=== PATIENT | male | born 1975 | race Caucasian/White ===

== ENCOUNTER 2022-04-20 20:44 | Emergency (ER) | payer BC ==
--- OUTSIDE RECORDS SUMMARY | 2022-04-20 20:49 | XMS REPORT | Continuity of Care Document ---
:1975 Author Organization [facility] t Address [address] [place] [address] Care Team Providers Name Role Phone PCP, PATIENT DOES NOT HAVE A Primary Care Physician UnavailCRISS Starr Attending Clinician Unavailable CAROLINA LOMBARDI Attending Clinician Unavailable CAROLINA LOMBARDI Attending Clinician Unavailable DENAE Mendez Eloise Attending Clinician VERA PEREZ Attending Clinician Unavailable Doctor Unassigned, [place] Attending Clinician Unavailable Criss Murillo MD Attending Clinician MING KEY Attending Clinician Unavailable Ming Key DO Attending Clinician Jairo Garcia MD Attending Clinician JAIRO GARCIA Attending Clinician Unavailable Coreen Canela DO Attending Clinician COREEN CANELA Attending Clinician Unavailable Torsten Franco MD Attending Clinician NUVIA VELASCO Attending Clinician Unavailable Nuvia Velasco MD Attending Clinician JOANN FARFAN Attending Clinician Unavailable Joann Farfan DO Attending Clinician CRISS MURILLO Admitting Clinician Unavailable CAROLINA LOMBARDI Admitting Clinician Unavailable Criss Murillo MD Admitting Clinician MING KEY Admitting Clinician Unavailable VERA PEREZ Admitting Clinician Unavailable COREEN CANELA Admitting Clinician Unavailable Coreen Canela DO Admitting Clinician NUVIA VELASCO Admitting Clinician Unavailable Payers Payer Name Policy Type Policy Number Effective Date Expiration Date S joselin [facility] [id number] 2021 00:00:00 Problems Condition Condition Condition Status Onset Resolution Last Treating Co mments Source Name Details Category Date Date Treatment Clinician Date Gastroesop Gastroesop Disease Active Overview : Univers hageal hageal 3-24 Formattin ity of reflux reflux 00:00: g of this [place] disease disease 00 note Medical with with might be Branch esophagiti esophagiti different s without s without from the hemorrhage hemorrhage original. Added automatic ally from request for surgery [id number] Obesity Obesity Disease Active Univers (BMI (BMI 3-21 ity of 30-39.9) 30-39.9) 00:00: [place] 00 Medical Branch Esophageal Esophageal Disease Active U nivers hiatal hiatal 3-21 ity of hernia hernia 00:00: [place] 00 Medical Branch Paraesopha Paraesopha Disease Active U nivers geal geal 3-21 ity of hernia hernia 00:00: 00 Medical Branch Abdominal Abdominal Disease Active Overview: Univers pain, pain, 3-16 Formattin ity of epigastric epigastric 00:00: g of this [place] 00 note Medical might be Branch different from the original. Added automatic ally from request for surgery [id number] Allergies, Adverse Reactions, Alerts Allergy Allergy Status Severity Reaction(s) Onset Inactive Treating Comm ents Source Name Type Date Date Clinician Morphine Propensi Active Itching Unive rs ty to 3-07 ity of adverse 00:00: [place] reaction 00 Medical s Branch MORPHINE DRUG Active Med ITCHING Univers INGREDI 3-07 ity of 00:00: [place] 00 Medical Branch Social History Social Habit Start Date Stop Date Quantity Comments Source Exposure to 2021-12-27 2022-01-06 Not sure [facility] SARS-CoV-2 00:00:00 09:25:00 [place] Medical (event) Branch Tobacco use and 2021-08-25 2021-08-25 Smokeless tobacco Un iversity of exposure 00:00:00 00:00:00 non-user [facility] [place] [facility] Sex Assigned At [birth year] Universit y of 00:00:00 00:00:00 [facility] [place] [facility] Smoking Status Start Date Stop Date Source Never smoked tobacco [facility] Medications Ordered Filled Start Stop Current Ordering Indication Dosage Frequency Signature Comments Components Source Medication Medication Date Date Medication? Clinician (SIG) Name Name hyoscyamine 2021-06 Yes [id number] .125mg Take 1 Univers 0.125 mg 0-26 tablet by ity of tablet 00:00: mouth [place] 00 every 6 Medical (six) Branch hours as needed for Other (esophagea l spasms). hyoscyamine 2021-06 Yes [id number] .125mg Take 1 Univers 0.125 mg 0-26 tablet by ity of tablet 00:00: mouth [place] 00 every 6 Medical (six) Branch hours as needed for Other (esophagea l spasms). ondansetron Yes [id number] 4mg Take 1 Univers 4 mg 4-22 tablet by ity of disintegrat 00:00: mouth [place] ing tablet 00 every 8 Medica l (eight) Branch hours as needed for Nausea and Vomiting (N/V). ondansetron 2021- No [id number] 4mg Take 1 Univers 4 mg 4-22 10-26 tablet by ity of disintegrat 00:00: 00:00 [place] tablet 00 :00 every 8 Medica l (eight) Branch hours as needed for Nausea and Vomiting (N/V). HYDROcodone Yes [id number] 1{tbl} Take 1 Un jeanne -acetaminop 4-19 tablet by ity of hen (NORCO) 00:00: mouth [place] 5-325 mg 00 every 6 Medical tablet (six) Branch hours as needed for Pain (scale 7-10) for up to 15 doses. Indication s: acute pain HYDROcodone 2021- No [id number] 1{tbl} Take 1 U nivers -acetaminop 4-19 10-26 tablet by it y of hen (NORCO) 00:00: 00:[place] 5-325 mg 00 :00 every 6 Medical tablet (six) Branch hours as needed for Pain (scale 7-10) for up to 15 doses. Indication s: acute pain hyoscyamine 2022-[id number] 1 Univers sulfate 4-02 tablet ity of (LEVSIN/SL) 00:00: [place] 0.125 mg 00 tongue Medical sublingual before Branch tablet meals. hyoscyamine 2-[id number] 1 Univers sulfate 4-02 tablet ity of (LEVSIN/SL) 00:00: [place] 0.125 mg 00 tongue Medical sublingual before Branch tablet meals. hyoscyamine 2-[id number] 1 Univers sulfate 4-02 tablet ity of (LEVSIN/SL) 00:00: [place] 0.125 mg 00 tongue Medical sublingual before Branch tablet meals. dicyclomine 2021-0 Yes [id number] 20mg Take 1 Univers 20 mg 3-19 tablet by ity of tablet 00:00: mouth 4 [place] 00 (four) Medical times Branch daily. proMETHazin 2021-0 Yes [id number] 25mg Take 1 Univers e 25 mg 3-19 tablet by ity of tablet 00:00: mouth [place] 00 every 6 Medical (six) Branch hours as needed for Nausea and Vomiting (N/V). dicyclomine 2021-0 2021- No [id number] 20mg Take 1 Univers 20 mg 3-19 10-26 tablet by ity of tablet 00:00: 00:00 mouth 4 [place] 00 :00 (four) Medical times Branch daily. proMETHazin 2021-0 2021- No [id number] 25mg Take 1 Univers e 25 mg 3-19 10-26 tablet by ity of tablet 00:00: 00:00 mouth [place] 00 :00 every 6 Medical (six) Branch hours as needed for Nausea and Vomiting (N/V). atorvastati 2020-0 Yes 40mg Take 40 mg Univers n 40 mg 4-12 by mouth. ity of tablet 00:00: [place] 00 Medical Branch atorvastati 2020-0 Yes 40mg Take 40 mg Univers n 40 mg 4-12 by mouth. ity of tablet 00:00: [place] 00 Medical Branch atorvastati 2020-0 Yes 40mg Take 40 mg Univers n 40 mg 4-12 by mouth. ity of tablet 00:00: [place] 00 [facility] anastrozole Yes 1mg Take 1 mg U nivers 1 mg tablet 3-23 by mouth ity of 00:00: [place] [facility] anastrozole 2020-2021- No 1mg Take 1 mg Univers 1 mg tablet 3-23 - by mouth ity of 00:00: 00:00 [place] 00 :00 [facility] Immunizations Ordered Filled Immunization Date Status Comments [facility] e Immunization Name Name SARS-COV-2 COVID-19 2021-07-04 Completed Unive rsity of PFIZER VACCINE 00:00:00 [facility] [place] SARS-COV-2 COVID-19 2021-07-04 Completed Unive rsity of PFIZER VACCINE 00:00:00 [facility] [place] SARS-COV-2 COVID-19 2021-07-04 Completed Unive rsity of PFIZER VACCINE 00:00:00 [facility] [place] SARS-COV-2 COVID-19 2020-10-02 Completed Unive rsity of PFIZER VACCINE 00:00:00 [facility] [place] SARS-COV-2 COVID-19 2020-10-02 Completed Unive rsity of PFIZER VACCINE 00:00:00 [facility] [place] SARS-COV-2 COVID-19 2020-10-02 Completed Unive rsity of PFIZER VACCINE 00:00:00 [facility] [place] SARS-COV-2 COVID-19 2020-09-11 Completed Unive rsity of PFIZER VACCINE 00:00:00 [facility] [place] SARS-COV-2 COVID-19 2020-09-11 Completed Unive rsity of PFIZER VACCINE 00:00:00 [facility] [place] SARS-COV-2 COVID-19 2020-09-11 Completed Unive rsity of PFIZER VACCINE 00:00:00 [facility] [place] Vital Signs Vital Name Observation Time Observation Value Comments Source Systolic blood 2022-01-06 14:31:00 142 mm[Hg] Univer sity of pressure [facility] [place] [facility] Diastolic blood 2022-01-06 14:31:00 92 mm[Hg] Unive rsity of pressure [facility] [place] [facility] Heart rate 2022-01-06 14:29:00 62 /min [facility] Body temperature 2022-01-06 14:29:00 36.67 [facility] Body height 2022-01-06 14:29:00 180.3 cm [facility] Body weight 2022-01-06 14:29:00 106.595 kg [facility] BMI 2022-01-06 14:29:00 32.78 kg/m2 [facility] Oxygen saturation in 2022-01-06 14:29:00 98 /min [facility] blood by [facility] Pulse oximetry [place] Procedures Procedure Date / Time Performed Performing Clinician [facility] e PATIENT QUESTIONNAIRE 2022-04-07 05:01:00 Doctor Unassigned, No University [facility] Name [facility] Encounters Start End Encounter Admission Attending Care Care Encounter Source Date/Time Date/Time Type Type Clinicians Facility Department ID 2021-09-16 Outpatient R CRISS MURILLO [facility] [id number] Univers 16:46:43 ity [facility] 2021-09-08 Outpatient R JENNIFER LOMBARDIRIEL [facility] LEYDI [id number] Univers 13:21:29 CAROLINA LOMBARDI i ty [facility] 2021-09-03 [facility] [id number] Univers 13:56:16 CAROLINA LOMBARDI i ty [facility] 2022-04-07 2022-04-07 Telemedici ROSIBEL Perez 1.2.840.114 [id number] Univers 11:45:00 12:00:00 ne Visit [facility] 350.1.13.10 ity of [facility] 4.2.7.2.[place] [id number] [facility] 185 Branch 2022-04-07 2022-04-07 Outpatient R CHRIS [facility] [id number] Univers 11:45:00 11:45:00 VERA ity [facility] 2022-04-07 2022-04-07 Orders Doctor PHILLIPS 1.2.840.114 [id number] Univers 00:00:00 00:00:00 Only Unassigned, FREDY 350.1.13.10 ity of [place] [facility] 4.2.7.2.686 [place] as [id number] [facility] 009 Branch 2022-01-06 2022-01-06 Office Catshilpa, [facility] 1.2.840.114 [id number] Univers 09:15:00 17:27:32 Visit Vera Y HEALTH 350.1.13.10 i ty [place] [id number] [address] 2022-01-06 2022-01-06 [facility] [id number] Univers 09:15:00 17:27:32 VERA ity [facility] 2022-01-06 2022-01-06 Outpatient R [facility] [id number] Univers 09:15:00 09:15:00 VERA ity [facility] 2022-01-06 2022-01-06 Orders Doctor JACQUELINE 1.2.840.114 [id number] Univers 00:00:00 00:00:00 Only Unassigned, FREDY 350.1.13.10 ity of [place] [facility] 4.2.7.2.686 [place] as [id number] [address] 2021-10-15 2021-10-15 Outpatient R CRISS MURILLO [facility] [id number] Univers 15:00:00 15:52:50 ity of [facility] [place] [facility] 2021-10-15 2021-10-15 Office Criss Murillo [facility] 1.2.840.114 [id number] Univers 15:00:00 15:52:50 Visit Y HEALTH 350.1.13.10 i ty [place] [id number] [address] 2021-10-15 2021-10-15 Telephone Criss Murillo [facility] 1.2.840.114 [id number] Univers 00:00:00 00:00:00 Y HEALTH 350.1.13.10 i ty [place] [id number] [address] 2021-10-02 2021-10-02 Telephone Chris [facility] 1.2.840.114 [id number] Univers 00:00:00 00:00:00 Vera Y HEALTH 350.1.13.10 i ty [place] 4[place] [id number] [facility] 185 Branch 2021-09-29 2021-09-29 Outpatient R MURILLOCRISS Rothman [facility] GIRISH [id number] Univers 05:06:00 13:58:00 ity of [facility] [place] [facility] 2021-09-29 2021-09-29 Hospital Criss Murillo 1.2.840.114 [id number] Univers 05:06:00 13:58:00 Encounter FREDY 350.1.13.10 ity of [facility] 4.2.7.2.686 [place] as [id number] [facility] 104 Branch 2021-09-29 2021-09-29 Surgery Criss Murillo 1.2.329.010 [id number] Univers 07:15:00 12:00:00 FREDY 350.1.13.10 it y of [facility] 4.2.7.2.686 [place] as [id number] [facility] 103 Branch 2021-09-29 2021-09-29 Outpatient Rufina MURILLOCRISS [facility] SCT [id number] Univers 05:06:00 05:06:00 ity [facility] 2021-09-29 2021-09-29 Orders Doctor JACQUELINE 1.2.840.114 [id number] Univers 00:00:00 00:00:00 Only Unassigned, FREDY 350.1.13.10 ity of [place] [facility] 4.2.7.2.686 [place] as [id number] [facility] 009 Branch 2021-09-27 2021-09-27 Refill Chris UNIVERSMIKE 1.2.840.114 [id number] Univers 00:00:00 00:00:00 Vera Y HEALTH 350.1.13.10 i ty of [facility] 4.2.7.2.[place] [id number] [facility] 185 Branch 2021-09-24 2021-09-24 Outpatient Rufina MURILLO [facility] [id number] Univers 15:45:00 15:45:00 ity [facility] 2021-09-22 2021-09-22 Telephone ROSIBEL Perez 1.2.840.114 [id number] Univers 00:00:00 00:00:00 Vera Y HEALTH 350.1.13.10 i ty [place] [id number] [address] 2021-09-18 2021-09-18 Emergency Tatianna KEY [facility] ERT [id number] Univers 06:58:00 09:14:00 MING ortiz [facility] 2021-09-18 2021-09-[address] [facility] [id number] Univers 06:58:00 09:14:00 Mingshaniqua STOCKTONSHAVON 350.1.13.10 i ty of [place] 4.2.7.2.686 [id number] [address] 2021-09-18 2021-09-18 Telephone Criss Murillo [facility] 1.2.840.114 [id number] Univers 00:00:00 00:00:00 SPECIALTY 350.1.13.10 ity of CARE 4.2.7.2.686 [facility] AT [id number] [address] 2021-09-16 2021-09-16 Prep For Chris, DIOGENESIT 1.2.840.114 [id number] Univers 00:00:00 00:00:00 Surgery [facility] 350.1.13.10 i ty of CL[place] 4[place] [id number] [address] 2021-09-12 2021-09-[address] [facility] ERT [id number] Univers 17:37:00 19:11:00 MING ortiz [facility] 2021-09-12 2021-09-[address] [facility] [id number] Univers 17:37:00 19:11:00 Ming BELTRAN 350.1.13.10 i ty of [place] 4.2.7.2.686 [facility] [id number] [address] 2021-09-11 2021-09-11 Outpatient R CRISS MURILLO [facility] [id number] Univers 14:00:00 15:42:53 ity [facility] 2021-09-11 2021-09-11 Office Criss Murillo [facility] 1.2.687.782 [id number] Univers 14:00:00 15:42:53 Visit SPECIALTY 350.1.13.10 ity [place] [id number] In janettmary JONESLorna 185 [facility] 2021-09-11 2021-09-11 Outpatient R MURILLO, CRISS [facility] [id number] Univers 14:00:00 14:00:00 ity of [facility] [place] [facility] 2021-09-11 2021-09-11 Office [facility] 1.2.783.366 [id number] Univers 13:30:00 13:45:00 Visit Jairo SPECIALTY 350.1.13.10 ity [place]2.[place] AT [id number] In janettmary APOLONIA 188 [facility] 2021-09-11 2021-09-11 [facility] [id number] Univers 13:30:00 13:30:00 JAIRO [facility] [place] [facility] 2021-09-11 2021-09-11 Orders Doctor JACQUELINE 1.2.840.114 [id number] Univers 00:00:00 00:00:00 Only Unassigned, FREDY 350.1.13.10 ity of [place] [facility] 4.2.7.2.686 [place] as [id number] [address] 2021-09-10 2021-09-[address] [facility] 1.2.361.804 [id number] Univers 00:00:00 00:00:00 Coreen K SPECIALTY 350.1.13.10 ity of [place]2.[place] AT [id number] In janettmary APOLONIA 072 [facility] 2021-09-08 2021-09-08 [facility] [id number] Univers 08:20:06 23:59:00 VERA ity [facility] 2021-09-08 2021-09-[address] [facility] 1.2.080.108 [id number] Univers 08:20:06 23:59:00 Encounter Vera SPECIALTY 350.1.13.10 ity of [place]2.[place] [id number] In michelle Guajardo7 [facility] 2021-09-08 2021-09-08 Outpatient R CHRIS [facility] [id number] Univers 08:20:06 23:59:00 VERA ity [facility] 2021-09-02 2021-09-02 [facility] [id number] Univers 14:00:00 15:48:00 VERA ity [facility] 2021-09-02 2021-09-02 Office Chris [facility] 1.2.840.114 [id number] Univers 14:00:00 15:48:00 Visit [facility] 350.1.13.10 i ty of [place] [id number] [address] 2021-09-02 2021-09-02 Outpatient R CHRIS [facility] [id number] Univers 14:00:00 15:48:00 VERA [facility] [place] [facility] 2021-09-02 2021-09-02 Prep For DIOGENES Perez 1.2.840.114 [id number] Univers 00:00:00 00:00:00 Surgery [facility] 350.1.13.10 i ty of [place] [id number] [facility] 185 [place] 2021-09-02 2021-09-02 Orders Doctor JACQUELINE 1.2.840.114 [id number] Univers 00:00:00 00:00:00 Only Unassigned, FREDY 350.1.13.10 ity of [place] [facility] 4.2.7.2.686 [place] as [id number] [facility] 009 [place] 2021-09-01 2021-09-01 [facility] [id number] Univers 09:56:46 23:59:00 COREEN ortiz o f [facility] [place] [facility] 2021-09-01 2021-09-01 [facility] 1.2.840.114 [id number] Univers 09:56:46 23:59:00 Encounter Coreen Cerna SPECIALTY 350.1.13.10 ity of CARE 4.2.7.2.686 [facility] AT [id number] In dicmary BARKSDALE 807 [facility] 2021-09-01 2021-09-01 Outpatient R HILTON [facility] [id number] Univers 09:56:46 23:59:00 COREEN ity o f [facility] [place] [facility] 2021-08-31 2021-08-31 [facility] 1.2.840.114 [id number] Univers 13:58:00 16:00:00 Encounter Coreen Cerna HEALTH 350.1.13.10 ity of [place] 4.2.7.2.686 [facility] [id number] [address] ([facility]) 2021-08-31 2021-08-[address] [facility] LEYDI [id number] Univers 13:58:00 16:00:00 COREEN cally o f [facility] [place] [facility] 2021-08-31 2021-08-31 Surgery [facility] 1.2.840.114 [id number] Univers 15:00:00 15:30:00 Coreen Cerna SPECIALTY 350.1.13.10 ity of CARE 4.2.7.2.686 [facility] AT [id number] In michelle BARKSDALE 020 [facility] 2021-08-31 2021-08-31 Orders Doctor PHILLIPS 1.2.840.114 [id number] Univers 00:00:00 00:00:00 Only Unassigned, FREDY 350.1.13.10 ity of [place] [facility] 4.2.7.2.686 Matt as [id number] [address] 2021-08-31 2021-08-31 Case JACQUELINE Franco 1.2.840.114 [id number] Univers 00:00:00 00:00:00 Management Torsten DANIEL 350.1.13.10 ity of HOSPITAL 4.2.7.2.686 [place] as [id number] [address] 2021-08-29 2021-08-29 Emergency X ROD [facility] ERT [id number] Univers 04:02:00 08:22:00 NUVIA ortiz [facility] 2021-08-29 2021-08-29 Emergency X ROD [facility] ERT [id number] Univers 04:02:00 08:22:00 NUVIA ortiz [facility] 2021-08-29 2021-08-[address] [facility] [id number] Univers 04:02:00 08:22:00 Nuvia Hanks DEVIN 350.1.13.10 ity of [place] 4.2.7.2.686 [facility] [id number] [address] 2021-08-25 2021-08-[address] [facility] 1.2.840.114 [id number] Univers 15:30:00 16:20:20 Visit Coreen MAHMOOD 350.1.13.10 ity of [facility] 4.2.7.2.686 [facility] AT [id number] [address] 2021-08-25 2021-08-25 Outpatient R HILTON, [facility] [id number] Univers 15:30:00 16:20:20 COREEN hand [facility] 2021-08-25 2021-08-25 Outpatient R HILTON, [facility] [id number] Univers 15:30:00 15:30:00 COREEN mckee [facility] [place] [facility] 2021-08-17 2021-08-[address] [facility] ERT [id number] Univers 00:28:00 02:17:00 JOANN ortiz [facility] 2021-08-17 2021-08-[address] [facility] 1.2.840.114 [id number] Univers 00:28:00 02:17:00 Joann BELTRAN 350.1.13.10 ity of [facility] 4.2.7.2.686 [facility] [id number] [address] 2020-09-11 2020-09-11 Orders Doctor PHILLIPS 1.2.840.114 [id number] Univers 00:00:00 00:00:00 Only Unassigned, FREDY 350.1.13.10 ity of [place] [facility] 4.2.7.2.686 Matt as [id number] [facility] 009 Branch Results This patient has no known results.
--- NOTE | 2022-04-20 21:03 | EDPHYS ---
Physician Documentation [facility] Name: Adam Pinedo Age: 46 yrs Sex: Male : 1975 Arrival Date: 04/20/2022 Time: 20:48 Bed 14 Private MD: ED Physician Gurmeet Kaminski HPI: 04/20 21:01 This 46 yrs old Male presents to ER via Wheelchair with complaints of Back Pain, Leg kb Pain. 21:01 The patient presents with pain that is acute. The symptoms are located in the left low kb back. Onset: The symptoms/episode began/occurred 6 day(s) ago. The pain does not radiate. Associated signs and symptoms: The patient has no apparent associated signs or symptoms. The problem was sustained from unknown cause. Modifying factors: The patient symptoms are alleviated by nothing, the patient symptoms are aggravated by any movement. Severity of symptoms: At their worst the symptoms were moderate, in the emergency department the symptoms are unchanged. The patient has not experienced similar symptoms in the past. The patient has not recently seen a physician. Pt reports left low back pain that radiates down left leg. Pain started 6 days ago, got better after steroid shot, but pain is back today. Denies injury or trauma. Historical: - Allergies: 20:53 Morphine; iw - PMHx: 20:53 SIATICA; iw - PSHx: 20:53 links implant; iw - Immunization history:: Adult Immunizations up to date. - Social history:: Smoking status: Patient denies any tobacco usage or history of. ROS: 20:59 Constitutional: Negative for fever, chills, and weight loss. kb 20:59 Back: Positive for pain at rest, pain with movement, radiated pain, of the left low back. 20:59 All other systems are negative. Exam: 20:59 Constitutional: This is a well developed, well nourished patient who is awake, alert, kb and in no acute distress. Head/Face: Normocephalic, atraumatic. ENT: Moist Mucous membranes Cardiovascular: Regular rate and rhythm with a normal S1 and S2. No gallops, murmurs, or rubs. No pulse deficits. Respiratory: Respirations even and unlabored. No increased work of breathing. Talking in full sentences Abdomen/GI: Soft, non-tender. No distention Skin: Warm, dry with normal turgor. Normal color. MS/ Extremity: Pulses equal, no cyanosis. Neurovascular intact. Full, normal range of motion. Neuro: Awake and alert, GCS 15, oriented to person, place, time, and situation. Moves all extremities. Normal gait. Psych: Awake, alert, with orientation to person, place and time. Behavior, mood, and affect are within normal limits. 20:59 Back: pain, that is moderate, of the left low back, ROM is painful, normal spinal alignment noted, vertebral tenderness, is not appreciated. Vital Signs: 20:49 BP 154 / 107; Pulse 64; Resp 16; Temp 98.6; Pulse Ox 100% ; Weight 91.63 kg; Height 5 iw ft. 10 in. (177.80 cm); Pain 7/10; 20:49 Body Mass Index 28.99 (91.63 kg, 177.80 cm) iw MDM: 20:49 Patient medically screened. kb 21:00 Data reviewed: vital signs, nurses notes. Data interpreted: Pulse oximetry: on room air kb is 100 %. Interpretation: normal. Counseling: I had a detailed discussion with the patient and/or guardian regarding: the historical points, exam findings, and any diagnostic results supporting the discharge/admit diagnosis, the need for outpatient follow up, a family practitioner, to return to the emergency department if symptoms worsen or persist or if there are any questions or concerns that arise at home. Administered Medications: 21:15 Drug: [place] (HYDROcodone-acetaminophen) 10 mg-325 mg 1 tabs Route: PO; jb4 21:15 Drug: Ketorolac 60 mg Route: IM; Site: left gluteus; jb4 Disposition Summary: 04/20/22 21:03 Discharge Ordered Location: Home kb Condition: Stable kb Diagnosis - Sciatica, left side kb Followup: kb - With: Emergency Department - When: As needed - Reason: Worsening of condition Followup: kb - With: Private Physician - When: 2 - 3 days - Reason: Recheck today's complaints, Continuance of care, Re-evaluation by your physician Discharge Instructions: - Discharge Summary Sheet kb - Sciatica, [id number] kb - Back Exercises, [id number] kb Forms: - Medication Reconciliation Form kb - Thank You Letter kb - Antibiotic Education kb - Prescription Opioid Use kb Prescriptions: - Diclofenac Sodium 75 mg Oral tablet,delayed release (DR/EC) - take 1 tablet by ORAL route 2 times per day As needed; 30 tablet; Refills: 0, kb Product Selection Permitted Signatures: Roslyn Sauceda FNP-C FNP-Ckb Williams, Irene, RN RN iw Sami Porter RN RN jb4
--- NOTE | 2022-04-20 21:03 | ER ---
Nurse's Notes [facility] Name: Adam Pinedo Age: 46 yrs Sex: Male : 1975 Arrival Date: 04/20/2022 Time: 20:48 Bed 14 Private MD: Diagnosis: Sciatica, left side Presentation: 04/20 20:49 Chief complaint: Patient states: was here a couple days ago, and now my left back and iw leg hurts so bad again. Coronavirus screen: Vaccine status: Patient reports being unvaccinated. Client denies travel out of the [place] in the last 14 days. Ebola Screen: Patient negative for fever greater than or equal to 101.5 degrees Fahrenheit, and additional compatible Ebola Virus Disease symptoms Patient denies exposure to infectious person. Patient denies travel to an Ebola-affected area in the 21 days before illness onset. Initial Sepsis Screen: Does the patient meet any 2 criteria? Yes Does the patient have a suspected source of infection? No. Patient's initial sepsis screen is negative. Risk Assessment: Do you want to hurt yourself or someone else? Patient reports no desire to harm self or others. 20:49 Method Of Arrival: Wheelchair iw 20:49 Acuity: SANDEEP 3 iw Triage Assessment: 20:53 General: Appears in no apparent distress. slender, Behavior is calm, cooperative, iw appropriate for age. Pain: Complains of pain in left leg. Musculoskeletal: Circulation, motion, and sensation intact. Capillary refill < 3 seconds, Range of motion:. Historical: - Allergies: 20:53 Morphine; iw - PMHx: 20:53 SIATICA; iw - PSHx: 20:53 links implant; iw - Immunization history:: Adult Immunizations up to date. - Social history:: Smoking status: Patient denies any tobacco usage or history of. Screenin:00 Abuse screen: Denies threats or abuse. Nutritional screening: No deficits noted. jb4 Tuberculosis screening: No symptoms or risk factors identified. Fall Risk Ambulatory Aid- Crutches/Cane/Walker (15 pts). Total Basilio Fall Scale indicates No Risk (0-24 pts). Assessment: 21:00 General: Appears in no apparent distress. uncomfortable, Behavior is calm, cooperative, jb4 appropriate for age. Pain: Complains of pain in left low back Pain radiates to left leg Pain currently is 6 out of 10 on a pain scale. Neuro: Level of Consciousness is awake, alert, obeys commands, Oriented to person, place, time, situation. Cardiovascular: Patient's skin is warm and dry. Respiratory: Airway is patent Respiratory effort is even, unlabored, Respiratory pattern is regular, symmetrical. GI: No signs and/or symptoms were reported involving the gastrointestinal system. : No signs and/or symptoms were reported regarding the genitourinary system. EENT: No signs and/or symptoms were reported regarding the EENT system. Derm: Skin is intact, Skin is pink, warm \T\ dry. Musculoskeletal: Circulation, motion, and sensation intact. Range of motion: intact in all extremities. Vital Signs: 20:49 BP 154 / 107; Pulse 64; Resp 16; Temp 98.6; Pulse Ox 100% ; Weight 91.63 kg; Height 5 iw ft. 10 in. (177.80 cm); Pain 7/10; 20:49 Body Mass Index 28.99 (91.63 kg, 177.80 cm) iw ED Course: 20:48 Patient arrived in ED. ja2 20:49 Roslyn Sauceda FNP-C is [facility]. kb 20:49 Gurmeet Kaminski MD is Attending Physician. kb 20:53 Triage completed. iw 20:53 Arm band placed on right wrist. iw 20:58 Bradly Cade, RN is Primary Nurse. as6 21:00 Patient has correct armband on for positive identification. Bed in low position. Call jb4 light in reach. Side rails up X 1. 21:00 No provider procedures requiring assistance completed. Patient did not have IV access jb4 during this emergency room visit. Administered Medications: 21:15 Drug: [place] (HYDROcodone-acetaminophen) 10 mg-325 mg 1 tabs Route: PO; jb4 21:15 Drug: Ketorolac 60 mg Route: IM; Site: left gluteus; jb4 Outcome: 21:03 Discharge ordered by . kb 21:20 Discharged to home ambulatory, with family. jb4 21:20 Condition: stable 21:20 Discharge instructions given to patient, Instructed on discharge instructions, follow up and referral plans. medication usage, Demonstrated understanding of instructions, follow-up care, medications, Prescriptions given X 1. 21:32 Patient left the ED. jb4 Signatures: Roslyn Sauceda, PRODUCT TECHNOLOGY SCIENTIST-C PRODUCT TECHNOLOGY SCIENTIST-Ckb Ruth Shelton, RN RN Sami Porter RN RN jb4 Vita Mckeon Ashby, IRINA RN as6 Corrections: (The following items were deleted from the chart) 20:58 20:49 Resp 16bpm; Temp 98.6F; [facility] 04/21 02:53 04/20 21:00 Discharged to home ambulatory, with family, jb4 jb4 04/21 02:53 04/20 21:00 Condition: stable jb4 jb4 04/21 02:04/20 21:00 Discharge instructions given to patient, Instructed on discharge jb4 instructions, follow up and referral plans. medication usage, Demonstrated understanding of instructions, follow-up care, medications, Prescriptions given X 1, jb4
[2022-04-20] MEDS ORDERED: HYDROCODONE/APAP 10/325 TAB ONE (21:10)
[2022-04-20] MEDS ORDERED: KETOROLAC 30 MG/ML INJ ONE (21:10)
[2022-04-20 21:35] VITALS: BP 154/107; TEMP 98.6; O2SAT 100
== END 2022-04-20 21:32 | disposition home or self-care (01) ==
LOC: ER 20:44
DX: M54.32 Sciatica, left side (principal); Z88.6 Allergy status to analgesic agent
CPT/HCPCS: 96372; 99283